=== PATIENT | female | born 1945 | race Caucasian/White ===

== ENCOUNTER 2021-10-29 15:45 | Emergency (ER) | payer OTHER ==
[~2021-10-29] VITALS: Ht 152.4 cm; Wt 54.4 kg
[2021-10-29 16:26] LABS: BASOPHILS ABSOLUTE AUTO 0.06 K/mm3 (0.00-0.23); BASOPHILS PERCENT AUTO 1 % (0-2); EOSINOPHILS ABSOLUTE AUTO 0.17 K/mm3 (0.00-0.68); EOSINOPHILS PERCENT AUTO 2 % (0-6); Hemoglobin 13.7 g/dL (11.5-16.0); IMMATURE GRAN ABSOLUTE AUTO 0.03 K/mm3 (0.00-0.10); IMMATURE GRAN PERCENT AUTO 0 % (0-1); LYMPHOCYTES ABSOLUTE AUTO 2.12 K/mm3 (0.84-5.20); LYMPHOCYTES PERCENT AUTO 19 % (21-46); MONOCYTES ABSOLUTE AUTO 1.01 K/mm3 (0.16-1.47); MONOCYTES PERCENT AUTO 9 % (4-13); Mean Corpuscular HGB 26.9 pg (26.0-34.0); Mean Corpuscular HGB Conc 34.3 g/dL (31.5-36.5); Mean Corpuscular Volume 78 fL (80-100); Mean Platelet Volume 10.5 fL (9.1-12.4); NEUTROPHILS ABSOLUTE AUTO 7.87 K/mm3 (1.96-9.15); NEUTROPHILS PERCENT AUTO 70 % (41-73); Platelet Count 247 K/mm3 (150-400); RDW Coefficient Variation 14.9 % (11.7-14.2); RDW Standard Deviation 42.5 fL (35.1-46.3); White Blood Cell Count 11.26 K/mm3 (4.00-11.30)
[2021-10-29] MEDS ORDERED: NAPR550 PO (16:48)
[2021-10-29] MEDS ORDERED: ATOR40TA PO (16:49)
[2021-10-29] MEDS ORDERED: GLIP10 PO (16:49)
[2021-10-29] MEDS ORDERED: ALPR.5 PO (16:49)
[2021-10-29] MEDS ORDERED: LOSA25 PO (16:49)
[2021-10-29] MEDS ORDERED: Celexa20 MG PO (16:50)
[2021-10-29] MEDS ORDERED: PANT40 PO (16:50)
[2021-10-29] MEDS ORDERED: METF500 PO (16:50)
[2021-10-29] MEDS ORDERED: ASPI81CH PO (16:51)
[2021-10-29] MEDS ORDERED: B-121000 MC3 PO (16:51)
[2021-10-29] MEDS ORDERED: Vitamin D1000 UNI1 PO (16:51)
[2021-10-29] MEDS ORDERED: Acetaminophen650 M1 PO (16:51)
[2021-10-29] MEDS ORDERED: MULTI-VITAMIN1 EAC2 PO (16:52)
[2021-10-29 18:32] LABS: Albumin, Blood 4.4 g/dL (3.4-5.0); Albumin/Globulin Ratio 1.2 (0.8-1.8); Bilirubin, Total 2.1 mg/dL (0.1-1.0); Bun/Creatinine Ratio 27.6 (12.0-20.0); Calcium, Blood 10.4 mg/dL (8.5-10.1); Creatinine, Blood 0.8 mg/dL (0.40-1.00); Globulin, Blood 3.6 g/dL (2.2-4.0); Potassium, Blood 3.6 mmol/L (3.5-5.5)
[2021-10-29 19:10] LABS: Influenza A, PCR NEGATIVE (NEGATIVE); Influenza B, PCR NEGATIVE (NEGATIVE); Resp Syncytial Virus, PCR NEGATIVE (NEGATIVE); SARS-Cov-2 (COVID-19) PCR, MMC NEGATIVE (NEGATIVE)
[2021-10-29 19:33] LABS: Source, Urine Voided
[2021-10-29 19:41] LABS: Bilirubin, Urine Neg (Neg); Blood, Urine 2+ (Neg); Color, Urine Yellow (P-Yellow); Glucose Qualitative, Urine 3+ (Neg); Ketones, Urine 2+ (Neg); Leukocyte Esterase, Urine Neg (Neg); Nitrite, Urine Neg (Neg); Protein, Urine 2+ (Neg); Specific Gravity, Urine 1.025 (1.003-1.022); Urobilinogen, Urine NORM (Normal)
[2021-10-29 19:48] LABS: Appearance, Urine Hazy (Clear)
[2021-10-29 19:52] LABS: Hyaline Casts 25-50 /lpf (0-2); Mucus Mod (0-Heavy)
[2021-10-29 19:53] LABS: Bacteria Many /hpf; Squamous Epithelial Cells Rare /hpf (Few); White Blood Cells, Urine 0-2 /hpf (0-5)
[2021-10-29 19:54] LABS: Amorphous Mod (0-Heavy)
[2021-10-29 19:55] LABS: Calcium Oxalate Crystals Few /hpf
== END 2021-10-29 20:21 | disposition home or self-care (01) ==
LOC: ER 15:45 → EDBD 15:45 → ER 20:21
PROVIDERS: Emergency Medicine
DX: R41.0 Disorientation, unspecified (principal); I10 Essential (primary) hypertension; E11.9 Type 2 diabetes mellitus without complications; Z79.899 Other long term (current) drug therapy; Z88.5 Allergy status to narcotic agent; Z79.84 Long term (current) use of oral hypoglycemic drugs; Z79.82 Long term (current) use of aspirin; Z20.822 Contact with and (suspected) exposure to COVID-19
CPT/HCPCS: 0241U; 70450; 80053; 81001; 85025; 87086; 93005; 93010; P9612